=== PATIENT | male | born 1975 | race Caucasian/White ===

== ENCOUNTER 2017-02-21 19:45 | Emergency (ER) | payer SELFPAY ==
--- NOTE | 2017-02-21 20:04 | EDPHY ---
H & P Stated Complaint: SI Source: Patient - Personal History Current Tetanus/Diphtheria Vaccine: Yes Current Tetanus Diphtheria and Acellular Pertussis (TDAP): Yes - Medical/Surgical History Hx Asthma: No Hx Chronic Respiratory Disease: No Hx Diabetes: No Hx Cardiac Disease: No Hx Renal Disease: No Hx Cirrhosis: No Hx Alcoholism: No Hx HIV/AIDS: No Hx Splenectomy or Spleen Trauma: No Other PMH: denies - Social History Smoking Status: Current every day smoker HPI/ROS: HPI CHIEF COMPLAINT: Suicidal ideation with plan HISTORY OF PRESENT ILLNESS: Patient is a 42-year-old male, significant past medical history for anxiety he presents emergency room by private vehicle with a friend for suicidal ideation with specific plan. Patient states that he has been suffering from severe anxiety and thoughts of suicide over the past few months. But never acted on it. Over the past few days he wrote out is willing cleaned out his house he got a Shot gone and was going to overdose on his Vicodin and then use the shot gun to kill himself. He called his friend and his friend made contact with him and brought him here to the emergency room for evaluation. He has not taken any medication or attempted to harm himself at this time. He does feel depressed, suicidal, anxious. Past Medical History: Anxiety Past Surgical History: No recent surgery Social History: Denies daily use of alcohol or drugs does smoke tobacco. Unemployed. Lives locally. Family History: Noncontributory. ROS REVIEW OF SYSTEMS: A comprehensive 10 point review of systems is otherwise negative aside from elements mentioned in the history of present illness. Exam Constitutional flat affect, tearful, triage nursing summary reviewed, vital signs reviewed, awake/alert. Eyes normal conjunctivae and sclera, EOMI, PERRLA. HENT normal inspection, atraumatic, moist mucus membranes, no epistaxis, neck supple/ no meningismus, no raccoon eyes. Respiratory clear to auscultation bilaterally, normal breath sounds, no respiratory distress, no wheezing. Cardiovascular rate normal, regular rhythm, no murmur, no edema, distal pulses normal. Gastrointestinal soft, non-tender, no rebound, no guarding, normal bowel sounds, no distension, no pulsatile mass. Genitourinary no CVA tenderness. Musculoskeletal no midline vertebral tenderness, full range of motion, no calf swelling, no tenderness of extremities, no meningismus, good pulses, neurovascularly intact. Skin pink, warm, & dry, no rash, skin atraumatic. Neurologic awake, alert and oriented x 3, AAOx3, moves all 4 extremities equally, motor intact, sensory intact, CN II-XII intact, normal cerebellar, normal vision, normal speech. Psychiatric flat affect, tearful. Suicidal. Depressed. Heme/Lymph/Immune no lymphadenopathy. Differential Diagnosis: Includes but is not limited to in a particular order suicidal ideation, depression, anxiety Medical Decision Making: Plan for this patient M1 hold. Patient be placed on M1 hold by myself. Blood draw for medical clearance, urine drug screen, patient need mental health evaluation and inpatient psychiatric hospitalization. Re-evaluation: 2046: Time of M1 hold. 2204: Patient medically clear. At 11:00 p.m. shift change patient signed over to Dr. Trinidad. Patient needs mental health evaluation. On M1 hold suicidal ideation. With plan. Patient has been seen by mental health. They will do a bed search for inpatient psychiatric hospitalization. (Rios Carrillo) Constitutional: Initial Vital Signs Temperature (C) 36.8 C 02/21/17 19:54 Heart Rate 88 02/21/17 19:54 Respiratory Rate 16 02/21/17 19:54 Blood Pressure 137/90 H 02/21/17 19:54 O2 Sat (%) 97 02/21/17 19:54 O2 Delivery Mode Room Air Allergies/Adverse Reactions: iodine Allergy (Verified 02/21/17 19:54) Home Medications: Medication Instructions Recorded NK [No Known Home Meds] 02/21/17 Medical Decision Making ED Course/Re-evaluation: 3:30 a.m.- The patient has been seen by the mental health team and has been recommended for inpatient hospitalization. He has been accepted at [facility] by Dr. Colin Smith. I have completed the EMTALA form. (Shanna Trinidad) - Data Points Laboratory Results: Laboratory Results 02/21/17 21:15 02/21/17 21:15 02/21/17 02/21/17 02/21/17 21:15 21:15 20:05 WBC 9.00 10^3/uL 10^3/uL (3.80-9.50) RBC 5.32 10^6/uL 10^6/uL (4.40-6.38) Hgb 17.2 g/dL g/dL (13.7-17.5) Hct 48.6 % % (40.0-51.0) MCV 91.4 fL fL (81.5-99.8) MCH 32.3 pg pg (27.9-34.1) MCHC 35.4 g/dL g/dL (32.4-36.7) RDW 12.8 % % (11.5-15.2) Plt Count 214 10^3/uL 10^3/uL (150-400) MPV 10.1 fL fL (8.7-11.7) Neut % (Auto) 62.5 % % (39.3-74.2) Lymph % (Auto) 28.0 % % (15.0-45.0) [place] % (Auto) 7.4 % % (4.5-13.0) Eos % (Auto) 1.2 % % (0.6-7.6) Baso % (Auto) 0.7 % % (0.3-1.7) Nucleat RBC Rel Count 0.0 % % (0.0-0.2) Absolute Neuts (auto) 5.62 10^3/uL 10^3/uL (1.70-6.50) Absolute Lymphs (auto) 2.52 10^3/uL 10^3/uL (1.00-3.00) Absolute Monos (auto) 0.67 10^3/uL 10^3/uL (0.30-0.80) Absolute Eos (auto) 0.11 10^3/uL 10^3/uL (0.03-0.40) Absolute Basos (auto) 0.06 10^3/uL 10^3/uL (0.02-0.10) Absolute Nucleated RBC 0.00 10^3/uL 10^3/uL (0-0.01) Immature Gran % 0.2 % % (0.0-1.1) Immature Gran # 0.02 10^3/uL 10^3/uL (0.00-0.10) Sodium 138 mEq/L mEq/L (134-144) Potassium 3.3 mEq/L L mEq/L (3.5-5.2) Chloride 105 mEq/L mEq/L (97-110) Carbon Dioxide 20 mEq/l L mEq/l (22-31) Anion Gap 13 mEq/L mEq/L (8-16) BUN 8 mg/dL mg/dL (7-23) Creatinine 0.7 mg/dL mg/dL (0.7-1.3) Estimated GFR > 60 Glucose 113 mg/dL H mg/dL (70-100) Calcium 9.7 mg/dL mg/dL (8.5-10.4) Urine Opiates Screen NEGATIVE (NEGATIVE) Urine Barbiturates NEGATIVE (NEGATIVE) Ur Phencyclidine Scrn NEGATIVE (NEGATIVE) Ur Amphetamine Screen NEGATIVE (NEGATIVE) U Benzodiazepines Scrn NEGATIVE (NEGATIVE) Urine Cocaine Screen NEGATIVE (NEGATIVE) U Marijuana (THC) Screen NON-NEGATIVE H (NEGATIVE) Ethyl Alcohol < 10 mg/dL mg/dL (0-10) Departure - Departure Disposition: Other Psych, Not Brian Clinical Impression: Suicidal ideation Condition: Serious Referrals: NONE *PRIMARY CARE P,. [Primary Care Provider] - As per Instructions
[2017-02-21 21:25] LABS: % IMMATURE GRANULYOCYTES 0.2 % (0.0-1.1); ABSOLUTE IMMATURE GRANULOCYTES 0.02 10^3/uL (0.00-0.10); ADD DIFF? NO; ADD MORPH? NO; ADD SCAN? NO; ATYPICAL LYMPHOCYTE FLAG 10 (0-99); FRAGMENT RBC FLAG 0 (0-99); HEMATOCRIT 48.6 % (40.0-51.0); HEMOGLOBIN 17.2 g/dL (13.7-17.5); LEFT SHIFT FLG 0 (0-99); LIPEMIA HEMOLYSIS FLAG 90 (0-99); MEAN CELL HEMOGLOBIN 32.3 pg (27.9-34.1); MEAN CELL HEMOGLOBIN CONCENTR. 35.4 g/dL (32.4-36.7); MEAN CELL VOLUME 91.4 fL (81.5-99.8); MEAN PLATELET VOLUME 10.1 fL (8.7-11.7); PLATELET CLUMPS FLAG 0 (0-99); PLATELET COUNT 214 10^3/uL (150-400); RED BLOOD CELL COUNT 5.32 10^6/uL (4.40-6.38); RED CELL DISTRIBUTION WIDTH 12.8 % (11.5-15.2)
[2017-02-21 21:42] LABS: ANION GAP 13 mEq/L (8-16); CALCIUM 9.7 mg/dL (8.5-10.4); CARBON DIOXIDE 20 mEq/l (22-31); CHLORIDE 105 mEq/L (97-110); CREATININE 0.7 mg/dL (0.7-1.3); ETHANOL SERUM < 10 mg/dL (0-10); GLOMERULAR FILTRATION RATE > 60; GLUCOSE 113 mg/dL (70-100); POTASSIUM 3.3 mEq/L (3.5-5.2); SODIUM 138 mEq/L (134-144)
[2017-02-22 00:20] VITALS: O2SAT 96
[2017-02-22 07:17] VITALS: BP 117/87; PULSE 92; RESP 18; TEMP 100.2
== END 2017-02-22 08:30 ==
DX: R45.851 Suicidal ideations (principal); F17.200 Nicotine dependence, unspecified, uncomplicated
CPT/HCPCS: 80305; G0480